=== PATIENT | male | born 1955 | race Caucasian/White ===

== ENCOUNTER → 2021-11-20 12:38 | Outpatient (BNVA) | payer OTHER, SELFPAY | PROVIDERS: Family Provider Family Medicine; Visit Provider Family Medicine | DX: N39.0 Urinary tract infection, site not specified (principal) | CPT/HCPCS: 81000; 87077; 87086; 87184 ==

== ENCOUNTER → 2021-12-11 12:37 | Outpatient (BNVA) | payer MEDICARE, MEDICAID, SELFPAY | PROVIDERS: Family Provider Family Medicine; PCP Family Medicine; Visit Provider Family Medicine | DX: N39.0 Urinary tract infection, site not specified (principal) | CPT/HCPCS: 81000; 87077; 87086; 87184 ==

== ENCOUNTER → 2022-01-02 13:48 | Outpatient (BNVA) | payer MEDICARE, MEDICAID, SELFPAY | PROVIDERS: Family Provider Family Medicine; PCP Family Medicine; Visit Provider Family Medicine | DX: N39.0 Urinary tract infection, site not specified (principal) | CPT/HCPCS: 81000; 87077; 87086; 87184 ==

== ENCOUNTER → 2022-01-17 11:48 | Outpatient (BNVA) | payer MEDICARE, MEDICAID, SELFPAY | PROVIDERS: Family Provider Family Medicine; PCP Family Medicine; Visit Provider Family Medicine | DX: N39.0 Urinary tract infection, site not specified (principal) | CPT/HCPCS: 81000; 87086 ==

== ENCOUNTER → 2022-01-27 14:24 | Outpatient (BNVA) | payer MEDICARE, MEDICAID, SELFPAY | PROVIDERS: Family Provider Family Medicine; PCP Family Medicine; Visit Provider Family Medicine | DX: N39.0 Urinary tract infection, site not specified (principal) | CPT/HCPCS: 81000 ==

== ENCOUNTER → 2022-01-28 14:49 | Outpatient (BNVA) | payer MEDICARE, MEDICAID, SELFPAY | PROVIDERS: Family Provider Family Medicine; PCP Family Medicine; Visit Provider Family Medicine | DX: N39.0 Urinary tract infection, site not specified (principal) | CPT/HCPCS: 87077; 87086; 87184 ==

== ENCOUNTER → 2022-12-16 11:11 | Outpatient (BNVA) | payer MEDICARE, SELFPAY | PROVIDERS: Family Provider Family Medicine; PCP Family Medicine; Visit Provider Family Medicine | DX: Z00.00 Encounter for general adult medical examination without abnormal findings (principal); E11.9 Type 2 diabetes mellitus without complications; I10 Essential (primary) hypertension | CPT/HCPCS: 80053; 80061; 83036 ==

== ENCOUNTER → 2022-12-23 11:23 | Outpatient (BNVA) | payer MEDICARE, SELFPAY | PROVIDERS: Family Provider Family Medicine; PCP Family Medicine; Referring Provider Family Medicine; Visit Provider Surgery | DX: Z12.11 Encounter for screening for malignant neoplasm of colon (principal) | CPT/HCPCS: 99024; 99203 ==

== ENCOUNTER 2023-01-16 07:55 | Day surgery (SDC) | payer MEDICARE, SELFPAY ==
[2023-01-14 11:18] VITALS: BMI 26.5
[2023-01-16 08:10] VITALS: BP 120/64; PULSE 111; RESP 16; TEMP 36.2; O2SAT 95
[2023-01-16] MEDS: sodium chloride 0.9% 1,000 ML 30 ML IV (08:20)
[2023-01-16 08:27] LABS: Glucose Point of Care 175 mg/dL (70-110)
--- NOTE | 2023-01-16 08:54 | W.PM.OPSUD ---
Surgery/Procedure H&P Update DATE OF PROCEDURE: January 16, 2023 DATE H&P PERFORMED: 12/23/22 H&P UPDATE INFORMATION: I have reviewed H&P completed within last 30 days, I have examined patient prior to procedure and No changes to prior documentation PLANNED PROCEDURE: Operation Date: 01/16/23 09:15 Proposed Procedures p Colonoscopy 88156,Z12.11(Not Applicable) - Nicho Fernandez, DO
--- NOTE | 2023-01-16 09:05 | ANES.PREANE2 ---
Pre-Anesthetic Assessment Height/Weight: Height 1.78 m Weight 83.915 kg Temp Pulse Resp BP Pulse Ox O2 Del Method 97.1 F L 111 H 16 120/64 95 Room Air 01/16/23 08:10 01/16/23 08:10 01/16/23 08:10 01/16/23 08:10 01/16/23 08:10 01/16/23 08:10 Preop Diagnosis: Screening Operation Date: 01/16/23 09:15 Proposed Procedures p Colonoscopy 44840,Z12.11(Not Applicable) - Nicho Fernandez, DO Was Beta Carlos taken within 24 hours: N/A Was Clonidine taken within 24 hours: N/A Last intake: Intake Last Liquid Date 01/15/23 Last Liquid Time 00:00 Last Solid Date 01/14/23 Last Solid Time 18:00 Social No alcohol and No tobacco Exam alert, oriented x 3, clear to auscultation bilaterally and regular rate & rhythm Airway Submandibular: within normal limits Cervical ROM: within normal limits Mallampati: Class II Dentition: false Comments: Comments: Upper plate. Poor dentition/missing teeth on bottom History/ROS No significant history except as noted and No significant complaints Pulmonary None reported CV/HEM Hypertension None reported Hepatic None reported GI None reported Metabolic Diabetes Mellitus Musc/skel Lower Back Pain and Osteoarthritis/DJD Neuropsych None reported Anesthetic Plan ASA status: 3 Anesthesia: Anesthesia Evaluation and MAC Risk of > 500 ml blood loss (7ml/kg in children): No Medications/Allergies Home Medications Medication Instructions Recorded Confirmed Last Taken Type aspirin 81 mg chewable tablet 81 mg PO DAILY 12/23/22 01/14/23 01/13/23 History (Aspirin Childrens) glipizide 5 mg tablet, extended 5 mg PO DAILY 01/14/23 01/14/23 01/14/23 History release 24 hr insulin detemir U-100 100 unit/mL 40 unit SUBCUT DAILY 01/14/23 01/14/23 01/14/23 History (3 mL) subcutaneous pen metformin 1,000 mg tablet 1,000 mg PO BID 01/14/23 01/16/23 01/14/23 History ramipril 10 mg capsule 10 mg PO DAILY 01/14/23 01/16/23 01/14/23 History simvastatin 40 mg tablet 40 mg PO DAILY 01/14/23 01/16/23 01/14/23 History Allergies Allergy/AdvReac Type Severity Reaction Status Date / Time penicillin V Allergy Intermediate rash Verified 01/14/23 11:16 Current Medications Generic Name Dose Route Start Last Admin Trade Name Judah PRN Reason Stop Dose Admin Sodium Chloride 1,000 mls @ 30 mls/hr 01/16/23 08:00 01/16/23 08:20 Sodium Chloride 0.9% IV 01/17/23 07:59 30 mls/hr .Q24H CHARLENE Administration PFSH Anesthesia Medical History Diabetes mellitus type 2, controlled Hypertension Family History Mother Cancer breast Social History Smoking and tobacco/nicotine status: current every day tobacco/nicotine user cigarettes Alcohol intake: current Alcohol intake frequency: holidays/special occasions only Data Anesthesia Cardiac Studies: No Data to Display
[2023-01-16 09:36] VITALS: BP 98/63; PULSE 84; RESP 18; TEMP 36.4; O2SAT 96
[2023-01-16 09:46] VITALS: BP 104/63; PULSE 86; RESP 18; O2SAT 94
[2023-01-16 09:51] VITALS: BP 100/62; PULSE 86; RESP 18; O2SAT 94
--- NOTE | 2023-01-16 13:50 | ANE.PACU2 ---
Inpatient post-anesthesia follow up: Airway intact: Yes Vital signs: Temperature 97.6 F Pulse Rate 86 Respiratory Rate 18 Blood Pressure 100/62 Pulse Oximetry 94 Oxygen Delivery Me thod Room Air Oxygen Flow Rate 3 Fraction of Inspir ed Oxygen Hydration adequate: Yes Nausea and vomiting: No Pain level: 2 Mental status: Baseline
== END 2023-01-16 10:02 | disposition home or self-care (01) ==
PROVIDERS: PCP Family Medicine; Visit Provider Surgery
PROC: 0DJD8ZZ Inspection of Lower Intestinal Tract, Via Natural or Artificial Opening Endoscopic (ICD-10-PCS; CPT 45378; principal; 2023-01-16 09:15)
DX: Z12.11 Encounter for screening for malignant neoplasm of colon (principal); D12.4 Benign neoplasm of descending colon; E11.9 Type 2 diabetes mellitus without complications; I10 Essential (primary) hypertension
CPT/HCPCS: 36416; 45385; 82962; 88305; J2704; J7030

== ENCOUNTER → 2023-02-04 13:46 | Outpatient (BNVA) | payer MEDICARE, SELFPAY | PROVIDERS: PCP Family Medicine; Visit Provider Surgery | DX: Z09 Encounter for follow-up examination after completed treatment for conditions other than malignant neoplasm (principal) | CPT/HCPCS: 99213 ==

== ENCOUNTER → 2023-06-25 14:51 | Outpatient (BNVA) | payer MEDICARE, SELFPAY | PROVIDERS: PCP Family Medicine; Visit Provider Family Medicine | DX: I10 Essential (primary) hypertension (principal); E11.9 Type 2 diabetes mellitus without complications | CPT/HCPCS: 80053; 83036 ==

== ENCOUNTER → 2023-12-24 07:54 | Outpatient (BNVA) | payer MEDICARE, SELFPAY | PROVIDERS: PCP Family Medicine; Visit Provider Family Medicine | DX: I10 Essential (primary) hypertension (principal); E11.9 Type 2 diabetes mellitus without complications | CPT/HCPCS: 80053; 80061; 83036 ==

== ENCOUNTER 2023-12-31 13:20 | Outpatient (CLI) | payer MEDICARE, SELFPAY ==
--- NOTE | 2023-12-31 13:30 | USCV_ITS ---
Barrett Scott Age: 68 Gender: M : 1955 Exam Date: 12/31/2023 13:32 Ordering Phys: Isaac De La Cruz MD Technologist: Ramin Myers Exam Location: [facility] [place] Indication: pain RIGHT LEFT Brachial 137.00 mmHg Brachial 138.00 mmHg Pressure (mmHg) Waveform Pressure (mmHg) Waveform 159.00 VOLLEYBALL REFEREE 141.00 137.00 DPA 139.00 1.15 Ankle/Brachial Index 1.02 99.00 Pre-Exercise Toe Pressure 109.00 0.72 Pre-Exercise Toe/Brachial Index 0.79 FINDINGS Resting JULI 1.15 on the right side and 1.02 on the left side. Resting TBI 0.70 on the right and 0.79 on the left CONCLUSIONS Normal resting ABIs and TBIs bilaterally No evidence of any significant arterial obstruction, based on the above findings. Dr Oniel Abdul MD [facility] (Electronically Signed) Final Date: 31 December 2023 22:39 S
== END 2023-12-31 13:21 | disposition home or self-care (01) ==
LOC: RAD 13:21
PROVIDERS: PCP Family Medicine; Visit Provider Family Medicine
DX: I73.9 Peripheral vascular disease, unspecified (principal)
CPT/HCPCS: 80053; 80061; 83036; 93922

== ENCOUNTER 2024-05-31 08:08 | Outpatient (CLI) | payer MEDICARE, SELFPAY ==
--- NOTE | 2024-05-31 08:11 | XRR_ITS ---
PROCEDURE INFORMATION: Exam: XR Spine; Lumbar Exam date and time: 05/31/2024 8:42 AM Age: 69 years old Clinical indication: Pain: Right hip pain TECHNIQUE: Imaging protocol: XR of the spine. Exam focused on the lumbar spine. Views: 1 view. 1 view. COMPARISON: CR XR hip RT 2-3V wo/w pel* [id number] 05/31/2024 8:37 AM FINDINGS: Bones/joints: No definite fracture is seen on this single frontal view of the lumbar spine. XR/XR lumbar spine 1V [id number] IMPRESSION: No definite fracture
--- NOTE | 2024-05-31 08:11 | XRR_ITS ---
PROCEDURE INFORMATION: Exam: XR Right Hip Exam date and time: 05/31/2024 8:37 AM Age: 69 years old Clinical indication: Hip pain; Right hip; Additional info: Right hip pain TECHNIQUE: Imaging protocol: Radiologic exam of the right hip. Views: 1 view hip with pelvis when performed. COMPARISON: No relevant prior studies available. FINDINGS: Bones/joints: There is a sclerotic lesion seen involving the proximal femur measuring 3.7 x 5.7 cm. No joint dislocation. Soft tissues: Unremarkable. Vasculature: Calcified atherosclerotic changes are seen. XR/XR hip RT 2-3V wo/w pel* [id number] IMPRESSION: 1. There is a sclerotic lesion seen involving the proximal femur measuring 3.7 x 5.7 cm. Finding could represent metastases in patient with known history of cancer. Clinical correlation is advised. 2. Calcified atherosclerotic changes are seen. COMMENT: THIS REPORT CONTAINS FINDINGS THAT MAY BE CRITICAL TO PATIENT CARE. The exam findings were verbally communicated by me to GEOVANNI ARTHUR via telephone conference at 10:32 AM STORE OPERATIONS SPECIALIST on 05/31/2024. The findings were acknowledged and understood.
== END 2024-05-31 08:09 | disposition home or self-care (01) ==
LOC: RAD 08:10
PROVIDERS: PCP Family Medicine; Visit Provider Family Medicine
DX: M25.551 Pain in right hip (principal); M89.251 Other disorders of bone development and growth, right femur; I70.90 Unspecified atherosclerosis
CPT/HCPCS: 72020; 73502

== ENCOUNTER 2024-06-06 14:18 | Outpatient (CLI) | payer MEDICARE, SELFPAY ==
--- NOTE | 2024-06-06 14:30 | MRR_ITS ---
PROCEDURE INFORMATION: Exam: MR Right Lower Extremity Joint Without and With Contrast; Hip Exam date and time: 06/06/2024 2:47 PM Age: 69 years old Clinical indication: Pain; Hip; Right; Additional info: Sclerotic mass on right proximal femur TECHNIQUE: Imaging protocol: Magnetic resonance imaging of the right lower extremity joint without and with contrast. Exam focused on the hip. Contrast material: MULTIHANCE; Contrast volume: 18 ml; Contrast route: INTRAVENOUS (IV); COMPARISON: CR XR hip RT 2-3V wo/w pel* [id number] 05/31/2024 8:37 AM FINDINGS: There is a lesion involving the proximal right femur. The lesion has a thick sclerotic rim with internal fluid as well as what appears to be a small amount of fat along the inferior margin of the lesion. No abnormal enhancement is noted on the postcontrast images. 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 No definite aggressive features are appreciated. No endosteal scalloping is noted. No cortical breakthrough is identified. No soft tissue mass is identified. No bony abnormalities are otherwise noted involving the included pelvic bones and proximal femurs. SI joints and symphysis pubis are normal. The femoral heads are normally located. There is no evidence of avascular necrosis. Examination of the small [id number] images of the right hip demonstrates mild cartilage thinning. No focal full-thickness cartilage defects are appreciated. No subchondral cyst formation or subchondral marrow edema is identified. There is a physiologic amount of fluid within the joint. No periacetabular cysts or fluid collections are noted. There is minimal tendinopathy involving the hamstring tendons. The gluteal tendons are normal. The iliopsoas tendon is normal. The neurovascular bundle is normal. The sciatic nerve is normal. No abnormal soft tissue enhancement is noted on the postcontrast images. MR/MR hip RT wo/w con [id number] IMPRESSION: 1. Lesion involving the proximal right femur. 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 No definite aggressive features are noted. Orthopedic oncology referral may be of benefit for further appropriate workup/follow-up.
[2024-06-06] MEDS: gadobenate dimeglumine 20 mL vial IV (15:23)
== END 2024-06-06 14:19 | disposition home or self-care (01) ==
LOC: RAD 14:20
PROVIDERS: PCP Family Medicine; Visit Provider Family Medicine
DX: R22.41 Localized swelling, mass and lump, right lower limb (principal)
CPT/HCPCS: 73723

== ENCOUNTER → 2024-06-22 09:12 | Outpatient (BNVA) | payer MEDICARE, SELFPAY | PROVIDERS: PCP Family Medicine; Visit Provider Family Medicine | DX: I10 Essential (primary) hypertension (principal); E11.9 Type 2 diabetes mellitus without complications; R22.41 Localized swelling, mass and lump, right lower limb | CPT/HCPCS: 80053; 83036; 85025; 86140 ==

== ENCOUNTER → 2024-12-22 08:36 | Outpatient (BNVA) | payer MEDICARE, SELFPAY | PROVIDERS: PCP Family Medicine; Visit Provider Family Medicine | DX: I10 Essential (primary) hypertension (principal); E11.9 Type 2 diabetes mellitus without complications; M54.9 Dorsalgia, unspecified; G89.29 Other chronic pain | CPT/HCPCS: 80053; 80061; 83036; 85025 ==